=== PATIENT | female | born 1980 | race Hispanic/Latino ===

== ENCOUNTER 2017-01-19 08:24 | Emergency (ER) | payer OTHER ==
[~2017-01-19] VITALS: Ht 165.1 cm; Wt 70.3 kg
[~2017-01-19 08:24] MED LIST: AZITHROMYCIN250 M1 PO; ZOFRAN ODT4 M1 SL
[2017-01-19 08:30] VITALS: BP 118/81
--- NOTE | 2017-01-19 08:32 | ED HAND/WRIST INJURY COMPLAINT ---
History of Present Illness General Chief Complaint: Hand or Wrist Injury Stated Complaint: LFT FINGER PAIN Source: patient, old records Exam Limitations: no limitations Vital Signs & Intake/Output Vital Signs & Intake/Output Vital Signs Date Time Temp Pulse Resp B/P Pulse O2 O2 Flow FiO2 Ox Delivery Rate 01/19 0830 98.1 74 18 118/81 98 Room Air Allergies Coded Allergies: No Known Allergies (10/08/16) Reconcile Medications Oxycodone HCl/Acetaminophen (Percocet 5-325 MG Tablet) 5 MG-325 MG TABLET 1-2 TAB PO Q6P PRN PAIN Triage Note: C/0 LEFT THUMB PAIN WITH SWELLING AFTER JAMMING THUMB IN WINDOW WHILE TRYING TO CLOSE WINDOW, LAST PM. PAIN UNRELIEVED WTIH ICE AND MOTRIN. Triage Nurses Notes Reviewed? yes HPI: PT PRESENTS WITH LEFT THUMB PAIN UNRELIEVED WITH MOTRIN. PT STATES THAT SHE JAMMED HER THUMB ON A WINDOW YESTERDAY. PAIN IS 10 OUT OF 10 AND INCREASES WITH MOVEMENT. NO RADIATION, CANSTANT. PT DENIES ANY OTEHR INJURY. Past History Medical History Any Pertinent Medical History? none Surgical History Surgical History: non-contributory Psychosocial History What is your primary language Portuguese Tobacco Use: Never used ETOH Use: occasional use Illicit Drug Use: denies illicit drug use Family History Hx Contributory? No Review of Systems Review of Systems Constitutional: Reports: no symptoms. Musculoskeletal: Reports: see HPI, joint pain. Neurological/Psychological: Reports: no symptoms. Immunologic/Allergic: Reports: no symptoms. Physical Exam Physical Exam General Appearance: well developed/nourished, no apparent distress Eyes: Bilateral: PERRL, EOMI. Neck: normal inspection, supple, full range of motion Wrist Left: normal range of motion, normal inspection Hand Left: ecchymosis, swelling, 1st finger Hand Right: normal inspection, normal range of motion Neurologic/Tendon: normal sensation, normal motor functions, normal tendon functions Progress Differential Diagnosis: contusion, fracture, sprain Plan of Care: Orders Procedure Date/time Status XRY-FINGERS, LEFT 01/19 834 Active Diagnostic Imaging: Viewed by Me: Radiology Read. Discussed w/RAD: Radiology Read. Radiology Impression: PATIENT: DILLON EATON PRESENT AGE: 36 PATIENT ACCOUNT NO: [id number] : 82 LOCATION: [facility] ORDERING PHYSICIAN: JULIENNE RETANA MD SERVICE DATE: 01/19/17 EXAM TYPE: RAD - XRY-FINGERS, LEFT EXAMINATION: XR FINGER, LEFT CLINICAL INFORMATION: Jammed left thumb. COMPARISON: None TECHNIQUE: Three views of the left Сергей. FINDINGS: There is no visible acute fracture, dislocation or soft tissue abnormality left thumb. IMPRESSION: Unremarkable left thumb exam. DICTATED BY: ELINOR COLON MD DATE/TIME DICTATED:01/19/17909 SENIOR CARE SPECIALIST:ANASTASIYA DATE/TIME TRANSCRIBED:01/19/17909 CONFIDENTIAL, DO NOT COPY WITHOUT APPROPRIATE AUTHORIZATION. <Electronically signed in Other Vendor System> SIGNED BY: ELINOR COLON MD 01/19/17913 Departure Departure Disposition: HOME OR SELF CARE Condition: Stable Clinical Impression Primary Impression: Left thumb sprain Referrals: PATIENT HAS NO PRIMARY CARE DR Additional Instructions: WEAR SPLING FOR COMFORT RETURN IF SYMPTOMS WORSEN OR FOR ANY CONCERNS Departure Forms: Customer Survey General Discharge Information Prescriptions: Current Visit Scripts Oxycodone HCl/Acetaminophen (Percocet 5-325 MG Tablet) 1-2 TAB PO Q6P PRN PAIN #6 TAB Procedures Splinting Location: LEFT THUMB Manual Alignment Performed: No Pre-Made Type: metal Splint: FINGER Splint Applied By: splint applied by me Pre-Proc Neuro Vasc Exam: normal Post-Proc Neuro Vasc Exam: normal
--- NOTE | 2017-01-19 09:14 | RADIOLOGY REPORT ---
EXAMINATION: XR FINGER, LEFT CLINICAL INFORMATION: Jammed left thumb. COMPARISON: None TECHNIQUE: Three views of the left Сергей. FINDINGS: There is no visible acute fracture, dislocation or soft tissue abnormality left thumb. IMPRESSION: Unremarkable left thumb exam.
[2017-01-19] MEDS ORDERED: PERCOCET 5-3251 EACH PO (09:24)
== END 2017-01-19 09:34 ==
LOC: ERH 08:24
DX: S63.602A Unspecified sprain of left thumb, initial encounter (principal); W23.1XXA Caught, crushed, jammed, or pinched between stationary objects, initial encounter
CPT/HCPCS: 73140-LT